=== PATIENT | female | born 1965 | race Caucasian/White ===

== ENCOUNTER 2022-12-01 06:15 | Day surgery (SDC) | payer BC ==
[~2022-12-01] VITALS: Ht 154.9 cm; Wt 56.1 kg
[2022-12-01] MEDS ORDERED: LR 1,000 ML IV SCH ×3 (06:45→09:45)
[2022-12-01] MEDS ORDERED: SUCCINYLCHOLINE 100MG/5ML SYRINGE As Ordered ONE (07:09)
[2022-12-01] MEDS ORDERED: MIDAZOLAM INJ 2MG/2ML VIAL As Ordered ONE (07:09)
[2022-12-01] MEDS ORDERED: propofoL 200 MG/20 ML VIAL As Ordered ONE (07:09)
[2022-12-01] MEDS ORDERED: ROCURONIUM BROMIDE 50MG/5ML VIAL As Ordered ONE (07:09)
[2022-12-01] MEDS ORDERED: LIDOCAINE 2% 100MG/5ML SDV (FOR ANES.) As Ordered ONE (07:10)
[2022-12-01] MEDS ORDERED: fentaNYL 100 MCG/2 ML INJECTION As Ordered ONE (07:10)
[2022-12-01] MEDS ORDERED: ONDANSETRON 4MG 2ML VIAL As Ordered ONE (07:11)
[2022-12-01] MEDS ORDERED: CLINDAMYCIN 900MG/6ML VIAL As Ordered ONE (07:42)
[2022-12-01] MEDS: LIDOCAINE W/EPINEPHRINE 1% 20ML VIAL As Ordered ONE ×2 (08:20→08:38)
[2022-12-01] MEDS ORDERED: fentaNYL 100 MCG/2 ML INJECTION IV PRN (08:40)
[2022-12-01] MEDS ORDERED: HYDROMORPHONE HCL 0.5 MG/ 0.5 ML SYRINGE IV PRN (08:40)
[2022-12-01] MEDS ORDERED: oxyCODONE 5MG TAB PO PRN (08:40)
[2022-12-01] MEDS ORDERED: ONDANSETRON 4MG 2ML VIAL IV PRN ×2 (08:40→09:45)
[2022-12-01 09:33] VITALS: BP 122/70; TEMP 97.7; O2SAT 96
[2022-12-01] MEDS ORDERED: HYDROcodone/APAP LIQUID 7.5-325MG 15ML UDC (LORTAB ELIXIR) PO PRN (09:45)
== END 2022-12-01 09:40 | disposition home or self-care (01) ==
LOC: M SDC 06:15
PROVIDERS: ATTEND Otolaryngology
DX: C02.9 Malignant neoplasm of tongue, unspecified (principal); K21.9 Gastro-esophageal reflux disease without esophagitis; R01.1 Cardiac murmur, unspecified; Z88.2 Allergy status to sulfonamides; Z88.8 Allergy status to other drugs, medicaments and biological substances; Z91.041 Radiographic dye allergy status
CPT/HCPCS: 41112; 88305; J0330; J2250; J2405; J3010; S0077